=== PATIENT | female | born 2000 | race Asian ===

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

== ENCOUNTER 2023-05-28 16:34 | Emergency (ER) | payer SELFPAY | END 2023-05-28 16:46 | disposition left against medical advice (07) | LOC: ED 16:46 | DX: R55 Syncope and collapse (principal) ==

== ENCOUNTER 2023-05-28 16:41 | Emergency (ER) | payer OTHER, SELFPAY ==
[2023-05-28 16:45] VITALS: BP 128/68; PULSE 111; RESP 20; TEMP 37; O2SAT 96; BMI 20.7
--- NOTE | 2023-05-28 16:54 | EKG12_ITS ---
Test Reason : Blood Pressure : / mmHG Vent. Rate : 094 BPM Atrial Rate : 094 BPM P-R Int : 136 ms QRS Dur : 080 ms QT Int : 332 ms P-R-T Axes : 077 076 038 degrees QTc Int : 415 ms Normal sinus rhythm Normal ECG Confirmed by CAROLIN EDOUARD, VIELKA ([id number]), fashion editor TENZIN MARCOS ([id number]) on 06/06/2023 10:09:28 AM Referred By: /KASHMIR/LISA Confirmed By:VIELKA COE MD
--- NOTE | 2023-05-28 16:54 | CT_ITS ---
STUDY: CT FACIAL BONES WITHOUT CONTRAST REASON FOR EXAM: Female, 23 years old. trauma, mandible RADIATION DOSAGE (If Supplied By Facility): CTDIvol = ( 29.38 ) mGy, DLP = ( 620.92 ) mGycm TECHNIQUE: The patient was scanned in a multi detector CT scanner. Sagittal and coronal images were reconstructed. Individualized dose optimization techniques were used for this CT. COMPARISON: None. FINDINGS: Normal soft tissue structures. Normal orbital mackenzie and orbital contents. Normal nasal bones and anterior nasal spine. Normal facial bones. There is no demonstrated fracture. Mucous retention cyst or polyp in the floor the left mid x-ray sinus consistent with chronic sinusitis. CT/Sinus/Facial Bone IMPRESSION: Normal unenhanced CT of the facial bones. Electronically Signed: Brandon Mitchell MD at 18:47 EST ,
--- NOTE | 2023-05-28 16:55 | EDS_ITS ---
HPI <Dr. Fatou Hermosillo, DO - Last Filed: 05/28/23 19:11> History of Present Illness Chief Complaint: Syncope Detail of Chief Complaint: Syncope Informant: patient Narrative Narrative: Patient presents to the emergency department after a syncopal episode while at work. Patient states that she was standing moving parts when and she remembers feeling lightheaded and then waking up on the floor. There was a coworker that noticed her fall and called for prepress supervisor. When prepress supervisor got there soon after she was starting to wake up and picking her head up off the floor. No seizure-like activity noted. Patient does not have a history of syncope. She had a little bit of a cough and some congestion and sore throat for the last 24 hours. Patient denies any fever. Patient on control and does not think she is . Last period was about 2 months ago which is not unusual for her. Denies any chest pain or palpitations or racing heart. Currently complaining of pain in her jaw. [facility] <Dr. Fatou Hermosillo, DO - Last Filed: 05/28/23 19:11> [facility] Home Medications NK 09/04/19 [History Last Taken Unknown] Allergy/AdvReac Type Severity Reaction Status Date / Time No Known Allergies Allergy Verified 05/28/23 18:27 Social History Smoking Status: Never smoker ROS <Dr. Fatou Hermosillo, DO - Last Filed: 05/28/23 19:11> ROS ED Review of Systems ROS Unobtainable: other Constitutional Constitutional ED: Reports lethargy; Denies chills, fever(s), sweats or weight loss Eyes Eyes: Denies blurry vision, change in vision or diplopia ENT ENT ED: Reports other Details: Pain, chin laceration ; Denies rhinorrhea or sore throat Cardiovascular Cardiovascular: Denies chest pain, orthopnea or racing heartbeat Respiratory/Chest Respiratory/Chest: Denies cough, dyspnea, dyspnea on exertion, orthopnea or sputum Gastrointestinal Gastrointestinal: Denies abdominal pain, diarrhea, nausea or vomiting Genitourinary Genitourinary ED: Denies dysuria, hematuria or urinary frequency Musculoskeletal Musculoskeletal: Denies arthralgias, back pain, myalgias or neck pain Integumentary Denies abscess, Abrasions or rash Neurologic Neurologic: Denies headache(s) or weakness Psychiatric Psychiatric: Denies anxiety, depression or suicidal thoughts Endocrine Endocrinology: Denies polydipsia, polyphagia or polyuria Hematologic/Lymphatic Hematologic/Lymphatic: Denies easy bleeding, easy bruising or lymphadenopathy Allergic/Immunologic Allergic/Immunologic ED: Denies mouth swelling, tongue swelling or urticaria EXAM <Dr. Fatou Hermosillo, DO - Last Filed: 05/28/23 19:11> Physical Exam Const Vital Signs: 05/28/23 16:45 05/28/23 16:42 05/28/23 18:42 Temperature 98.6 F Temperature Source Oral Pulse Rate 111 H 95 Respiratory Rate 20 H 17 Respiratory Effort Normal Non-Labored Respiratory Pattern Normal Blood Pressure 128/68 H 121/75 H Blood Pressure Mean 88 90 Pulse Ox 96 100 Oxygen Delivery Method Room Air Room Air Positive well nourished and well developed General Appearance ED: well developed and NAD HEENT Reports TM's clear and moist mucous membranes HEENT Narrative: Tenderness palpation over the right mandible. No obvious malocclusion noted. Patient does have a 3 cm laceration to the right submental portion of her chin. normocephalic and atraumatic; Negative for trauma or tenderness Tympanic Membrane ED: Yes TM's clear Eyes PERRL and EOMs intact bilaterally General Eye ED: Negative for pale conjunctiva or scleral icterus Neck no lymphadenopathy, supple and no JVD General: Negative for tenderness Chest Wall inspection of chest normal and palpation of chest normal Chest: Negative for tenderness Resp normal respiratory effort and clear to auscultation bilaterally Effort and Inspection: Negative for respiratory distress or pain with movement Auscultation: Negative for rhonchi, wheezes or diminished lung sounds Cardio regular rate, regular rhythm, S1 normal heart sound, S2 normal heart sound and no murmurs Peripheral Pulses: pulses 2+ throughout GI normal to inspection, nondistended, normoactive bowel sounds, soft to palpation, non-tender, non-distended and no masses Back/Spine no CVA tenderness and no thoracic nor lumbar tenderness Extremity normal to inspection General Extremety ED: Negative for edema General Extremity: Negative for edema Neuro oriented x3, CN's II-XII intact bilaterally, no sensory deficits noted and gait normal Sensorium / Orientation: awake, alert, oriented to person, oriented to place and oriented to time Motor Exam: strength 5/5 throughout and strength abnormal Psych mental status grossly normal Skin no rashes or lesions noted and no wounds <Elaina Glauthier, PA - Last Filed: 05/28/23 19:03> Physical Exam Const Vital Signs: 05/28/23 16:45 05/28/23 16:42 05/28/23 18:42 Temperature 98.6 F Temperature Source Oral Pulse Rate 111 H 95 Respiratory Rate 20 H 17 Respiratory Effort Normal Non-Labored Respiratory Pattern Normal Blood Pressure 128/68 H 121/75 H Blood Pressure Mean 88 90 Pulse Ox 96 100 Oxygen Delivery Method Room Air Room Air MDM <Dr. Fatou Hermosillo DO - Last Filed: 05/28/23 19:11> [facility] Narrative Medical decision making narrative: With syncopal episode and laceration to chin with injury to her mandible. We will obtain a CT of the facial bones to evaluate for fractures. Patient will r equire suture repair. Will obtain basic lab work and test as well as an EKG. Allergy of syncope unclear. We will also obtain a COVID and flu test. PA procedure note: 4 cm linear chin laceration. I anesthetized with 1% lidocaine and thoroughly irrigated with sterile saline. It was prepped and draped in sterile condition and I placed 5 simple interrupted sutures of 5-0 Ethilon with good approximation. Patient tolerated procedure well without complications. Patient presented with a syncopal episode. She had a slight cough. CT scan of the facial bones obtained was negative for fractures. Patient's lab work-up was unremarkable and her was negative. EKG obtained showed a sinus rhythm with a rate of 94 bpm with no acute ST segment changes. COVID testing was posit poncho for COVID-19. Please see CORY's note regarding suture repair. Patient will be advised to follow-up in 5 days for suture removal either with her primary care physician or corporate care. Lab Data Labs: Laboratory Results - last 24 hr 05/28/23 17:55 WBC 9.1 RBC 4.89 Hgb 13.1 Hct 39.2 MCV 80.2 L MCH 26.8 L MCHC 33.4 RDW Std Deviation 37.2 RDW Coeff of Alessandro 12.9 Plt Count 229 MPV 10.9 Sodium 137 Potassium 4.2 Chloride 105 Carbon Dioxide 25.0 Anion Gap 7 BUN 12 Creatinine 0.91 Estim Creat Clear Calc 86.49 Est GFR (MDRD) Af Amer 100 Est GFR (MDRD) Non-Af 82 BUN/Creatinine Ratio 13.2 Glucose 90 Calcium 8.5 Serum , Qual NEGATIVE Radiography Diagnostic Testing: Clinical Impression(s) from Imaging Studies Facial/Sinus 05/28/23 16:54 IMPRESSION: Normal unenhanced CT of the facial bones. Electronically Signed: Brandon Mitchell MD at 18:47 EST , EKG Initial EKG: Attestation: I personally reviewed and interpreted this EKG as follows: Comments: Sinus rhythm with a rate of 94 bpm with no acute ST segment changes <CORY Serrano - Last Filed: 05/28/23 19:03> [facility] MDM Narrative Medical decision making narrative: With syncopal episode and laceration to chin with injury to her mandible. We will obtain a CT of the facial bones to evaluate for fractures. Patient will require suture repair. Will obtain basic lab work and test as well as an EKG. Allergy of syncope unclear. We will also obtain a COVID and flu test. CORY procedure note: 4 cm linear chin laceration. I anesthetized with 1% lidocaine and thoroughly irrigated with sterile saline. It was prepped and draped in sterile condition and I placed 5 simple interrupted sutures of 5-0 Ethilon with good approximation. Patient tolerated procedure well without complications. Lab Data Attestation: I reviewed the patient's lab results. Labs: Laboratory Results - last 24 hr 05/28/23 17:55 WBC 9.1 RBC 4.89 Hgb 13.1 Hct 39.2 MCV 80.2 L MCH 26.8 L MCHC 33.4 RDW Std Deviation 37.2 RDW Coeff of Alessandro 12.9 Plt Count 229 MPV 10.9 Sodium 137 Potassium 4.2 Chloride 105 Carbon Dioxide 25.0 Anion Gap 7 BUN 12 Creatinine 0.91 Estim Creat Clear Calc 86.49 Est GFR (MDRD) Af Amer 100 Est GFR (MDRD) Non-Af 82 BUN/Creatinine Ratio 13.2 Glucose 90 Calcium 8.5 Serum , Qual NEGATIVE Radiography Diagnostic Testing: Clinical Impression(s) from Imaging Studies Facial/Sinus 05/28/23 16:54 IMPRESSION: Normal unenhanced CT of the facial bones. Electronically Signed: Brandon Mitchell MD at 18:47 EST , Discharge Plan Triage Chief Complaint: Syncope ED Provider: Fatou Hermosillo Dx/Rx/DC Orders Clinical Impression: COVID-19, Syncope, Chin laceration, Contusion of face Instructions: Caring for Someone Who Has COVID-19, ED Laceration, Chin, Suture or Tape, ED CONTUSION Face [w/ Wake Up], ED Fainting, Uncertain Cause Prescriptions: No Action NK Primary Care Provider: Kalin Larkin Referrals: [facility] [Group of Physicians] - 5 Days for suture removal Kalin Larkin DO [Primary Care Provider] - 5 Days for suture removal Disposition Disposition: Home, Self Care
[2023-05-28] MEDS: 0.9% Normal Saline (1000mL) 1,000 ML 1000 ML IV (17:52)
[2023-05-28 18:11] LABS: Hematocrit 39.2 % (37-47); Hemoglobin 13.1 g/dL (12.0-15.0); Mean Corp Hgb Conc 33.4 g/dL (32-36); Mean Corpuscular Hgb 26.8 pg (27.0-32.0); Mean Corpuscular Volume 80.2 fL (81-99); Mean Platelet Vol. 10.9 fl (6.2-12.0); Platelet Count 229 K/mm3 (150-450); RBC Distribution Width CV 12.9 % (11.6-14.6); RBC Distribution Width SD 37.2 fl (35.1-43.9); Red Blood Count 4.89 M/mm3 (4.2-5.4); White Blood Count 9.1 K/mm3 (4.4-11.0)
[2023-05-28 18:18] LABS: Internal QC Validated? YES +Cl - CLEAR BKGD; Pregnancy, Serum, hCG Quali. NEGATIVE Negative
[2023-05-28 18:21] LABS: Anion Gap 7 (5-15); BUN 12 mg/dL (7-18); BUN/Creat Ratio 13.2 RATIO (10-20); Calcium,Total 8.5 mg/dL (8.5-10.1); Chloride 105 mmol/L (98-107); Creatinine, Serum 0.91 mg/dL (0.55-1.02); EST Glomerular Filtration Rate 82 mL/min (>60); Est Glom Filt Rate - Afr Amer 100 mL/min (>60); Estimated Creatinine Clearance 86.49 ml/min; Glucose 90 mg/dL (74-106); Potassium 4.2 mmol/L (3.5-5.1); Sodium Level 137 mmol/L (136-145)
[2023-05-28 18:42] VITALS: BP 121/75; PULSE 95; RESP 17; O2SAT 100
[2023-05-28] MEDS: Lidocaine 1% (20 ml mdv) 20 ML Vial 8 ML INFILT (19:29)
[2023-05-28 19:30] VITALS: BP 123/70; PULSE 68; RESP 16; O2SAT 97
== END 2023-05-28 19:31 | disposition home or self-care (01) ==
PROVIDERS: Emergency Provider Emergency Medicine; PCP Student in an Organized Health Care Education/Training Program; Visit Provider Emergency Medicine
DX: U07.1 COVID-19 (principal); S01.81XA Laceration without foreign body of other part of head, initial encounter; R55 Syncope and collapse; W18.39XA Other fall on same level, initial encounter; Y93.89 Activity, other specified; Y99.0 Civilian activity done for income or pay; Y92.69 Other specified industrial and construction area as the place of occurrence of the external cause
CPT/HCPCS: 12013; 70486; 80048; 84703; 85027; 87428; 90715; 93005; 96360; 96361; 99285; J7030; A4216